=== PATIENT | male | born 1950 | race Caucasian/White ===

== ENCOUNTER 2018-06-07 15:09 | Emergency (ER) | payer MEDICARE, BC ==
[2018-06-07] MEDS ORDERED: fentaNYL* 50 MCG/ML 2 ML VIAL (100 MCG VIAL) ONE (15:36)
[2018-06-07] MEDS ORDERED: fentaNYL* 50 MCG/ML 2 ML VIAL (100 MCG VIAL) IV SLOW PU ONE (15:42)
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
[2018-06-07 15:52] LABS: ABS Basophils 0 10^3/ul (0-0.2); ABS Eosinophils 0.8 10^3/ul (0-0.6); ABS Monocytes 0.5 10^3/ul (0-0.8); ABS Neutrophils 3.7 10^3/ul (1.5-7.7); ABS Nucleated RBC 0 10^3/ul; Eosinophil % 10.9 % (0-6); Hematocrit 40 % (42-52); Hemoglobin 13.6 g/dl (14.0-18.0); Lymphocyte % 28.3 % (25-47); Mean Corpuscular HGB Conc 34 g/dl (31-36); Mean Corpuscular Hemoglobin 30 pg (27-31); Mean Corpuscular Volume 88 fL (80-94); Mean Platelet Volume 7.8 um3 (7.4-10.4); Nucleated Red Blood Cells % 0.1; Platelet Count 152 10^3/ul (150-450); Red Blood Count 4.52 10^6/ul (4.00-5.40); Red Cell Distribution Width 15 % (10.5-15)
[2018-06-07 16:00] LABS: INR 2.1 (0.77-1.02)
[2018-06-07 16:07] LABS: EGFR Non-African American 61.8 (>60)
[2018-06-07] MEDS ORDERED: Iodixanol* (CONTRAST) 320 MG/ML 100 ML SDV IV ONE (16:13)
--- NOTE | 2018-06-07 16:24 | RAD ---
INDICATION: Dyspnea COMPARISON: None. TECHNIQUE: Single AP portable view of the chest was obtained. FINDINGS: Image quality is compromised due to the relative inferiority of a portable chest x-ray. The heart and mediastinum exhibit normal size and contour. The lungs are grossly clear. There is no evidence of a large pleural effusion. Visualized bones are normal for the patient's age. IMPRESSION: No radiographic evidence for acute cardiopulmonary abnormality on this portable chest x-ray.
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
[2018-06-07] MEDS ORDERED: oxyCODONE/Acetamin 5/325 MG* TAB PO ONE ×2 (17:14→18:43)
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
[2018-06-07 19:17] VITALS: BP 152/81
== END 2018-06-07 19:30 | disposition home or self-care (01) ==
LOC: ED 15:09
DX: S22.31XA Fracture of one rib, right side, initial encounter for closed fracture (principal); S20.211A Contusion of right front wall of thorax, initial encounter; V86.55XA Driver of 3- or 4- wheeled all-terrain vehicle (ATV) injured in nontraffic accident, initial encounter; Y93.89 Activity, other specified; Y92.9 Unspecified place or not applicable; I44.4 Left anterior fascicular block; R06.02 Shortness of breath; M50.30 Other cervical disc degeneration, unspecified cervical region
CPT/HCPCS: 36415; 70450; 71045; 71260; 72125; 74177; 80053; 83735; 83880; 84484; 85025; 85610; 85730; 93005; 96374; 99284; A9270-GY; J3010; Q9967

== ENCOUNTER 2018-09-07 04:23 | Emergency (ER) | payer MEDICARE, BC ==
--- OUTSIDE RECORDS SUMMARY | 2018-09-07 04:33 | XMS REPORT | Continuity of Care Document ---
:1950 External Reference #:[id number] Author Name Shaun Gandhi M.D. Address [address] [place] [address] Care Team Providers Name Role Phone Mireya Hill MD Primary Care Physician Unavailable Payers Type Date Identification Numbers Payment Provider Subscriber Policy Number: [id number] Medicare - [facility] Shaun Moore Jacobo PayID: [id number] [facility] [place] [address] Policy Number: [id number] [facility] Shaun Centeno PayID: [id number] [address] [address] [place] [address] Advance Directives Description No Information Available Problems Date Description Provider Status Onset: Essential hypertension Active Onset: 05/02/2015 Nuclear senile cataract Shaun Gandhi M.D. Active Onset: 08/11/2018 Type 2 diabetes mellitus Shaun Gandhi M.D. 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 Vitamin D Active Tablets 1000Unit every Unknown 000 day Levothyroxine Active Tablets 25mcg Unknown Sodium 000 Metoprolol 00/00/0 Active Tablets ER 50mg Unknown Succinate ER 000 24HR Avapro Active Tablets 300mg 1 by Unknown 000 mouth every day Doxazosin Active Tablets 4mg Unknown Mesylate 000 Amlodipine Active Tablets 5mg Unknown Besylate 000 Paxil Active Tablets 40mg Unknown 000 Furosemide Active Tablets 80mg Unknown 000 Warfarin Sodium Active Tablets 10mg Unknown 000 Tikosyn Active Capsules 250mcg Unknown 000 Januvia Active Tablets 100mg [place], 000 Mireya Beckman M.D. Immunizations Description No Information Available Vital Signs Description No Information Available Results Description No Information Available Procedures Date Code Description Status 12/30/2017 12775 Est Patient Comprehensive Exam Completed 07/01/2017 48439 Est Patient Comprehensive Exam Completed 05/02/2015 57223 New Patient Comprehensive Exam Completed Encounters Description No Information Available Plan of Treatment 08/11/2018 - Shaun Gandhi M.D.H25.13 Age-related nuclear cataract, bilateralComments:Smoking can increase the risk of developing or worsening any eye related disease, as well as affect your overall health. If you are a smoker , we strongly recommend that you quit.If you are not a smoker, we strongly recommend that you do not start. You have been diagnosed with cataracts. If you are happy with your vision as it is now, then we will see you at your next scheduled appointment. If you feel like your vision is getting worse before your scheduled appointment, please call [facility] at .Follow up:6 Month Follow Up Diagnostic Refraction You can expect to have your eyes dilated at your next visit. If Dr. Gandhi orders any additional testing , it may require extra time. We recommend that you bring sunglasses, as dilation drops often make you light sensitive until they wear off. We always recommendyou bring someone to drive you home if you are uncomfortable driving with your eyes dilated. If you have any questions before your next visit, feel free to call our office at .E11.9 Type 2 diabetes mellitus without complicationsComments:You have diabetes. I do not detect any changes in both of your retinas from diabetes at this time. Proper control of your diabetes is important for the health of your eyes. Changes in your eyes from diabetes can happen without symptoms, so it is important that you have your eyes examined. Dr. Gandhi has sent a report to your primary care doctor, letting them know there is no damage from the Diabetes in your eyes.
--- NOTE | 2018-09-07 04:52 | ED ---
Upper Extremity Pain - HPI Summary HPI Summary: This patient is a 68 year old M presenting to [facility] with a chief complaint of left arm pain since 4 days ago. The patient reports that the pain resolved temporarily 3 days ago but returned 1 day ago a few hours after pulling the start cord on his motor power connector. Patient denies any known mechanism of injury. The patient rates the pain 8/10 in severity. Symptoms aggravated by movement. Symptoms alleviated by nothing. Patient reports swelling and bruising on his left arm. Patient notes that he took several Tylenol but it did not alleviate his symptoms. Hx of AFib. - History of Current Complaint Chief Complaint: EDExtremityUpper Stated Complaint: ARM PAIN Hx Obtained From: Patient Mechanism Of Injury: Unknown Onset/Duration: Started Days Ago, Still Present Timing: Constant Severity Initially: Moderate Severity Currently: Moderate Pain Location: Arm - left upper arm Aggravating Factor(s): Movement Alleviating Factor(s): Nothing Associated Signs & Symptoms: Positive: Swelling, Bruising - Allergies/Home Medications Allergies/Adverse Reactions: Allergies Allergy/AdvReac Type Severity Reaction Status Date / Time No Known Allergies Allergy Verified 09/07/18 04:39 PMH/Surg Hx/FS Hx/Imm Hx Endocrine/Hematology History: Reports: Hx Diabetes Cardiovascular History: Reports: Hx Atrial Fibrillation, Hx Hypertension History: Denies: Hx Renal Disease - Surgical History Surgery Procedure, Year, and Place: T & A. LEFT CEASAR Infectious Disease History: No Infectious Disease History: Denies: Traveled Outside the in Last 30 Days - Family History Known Family History: Positive: Hypertension - Social History Alcohol Use: None Hx Substance Use: No Substance Use Type: Reports: None Hx Tobacco Use: No Smoking Status (MU): Never Smoked Tobacco Review of Systems Negative: Fever Negative: Epistaxis Negative: Chest Pain Positive: Myalgia - upper left arm pain, Edema - swelling of upper left arm Positive: Bruising - on left upper arm All Other Systems Reviewed And Are Negative: No Physical Exam - Summary Physical Exam Summary: Appearance: Well-appearing, Well-nourished, lying in bed comfortable Skin: Warm, dry, no obvious rash Eyes: sclera anicteric, no conjunctival pallor ENT: mucous membranes moist Neck: deferred Respiratory: No signs of respiratory distress Cardiovascular: Appears well perfused, Pulse slow but regular Abdomen: deferred Musculoskeletal: Moving all 4 extremities without obvious discomfort. Left forearm over bicep musculature is swollen, feels somewhat firm with obvious ecchymosis over the area. Patient is able to flex bicep muscle and supinate forearm. Neurological: Awake and alert, mentation is normal, speech is fluent and appropriate Psychiatric: affect is normal, does not appear anxious or depressed Triage Information Reviewed: Yes Vital Signs On Initial Exam: Initial Vitals Temp Pulse Resp BP Pulse Ox 97.1 F 54 18 159/74 95 09/07/18 04:24 09/07/18 04:24 09/07/18 04:24 09/07/18 04:24 09/07/18 04:24 Vital Signs Reviewed: Yes Diagnostics - Vital Signs Vital Signs Temp Pulse Resp BP Pulse Ox 09/07/18 04:24 97.1 F 54 18 159/74 95 - Laboratory Lab Statement: Any lab studies that have been ordered have been reviewed, and results considered in the medical decision making process. Course/Dx - Course Course Of Treatment: This patient is a 68 year old M with hx AFib reporting left arm pain, swelling and bruising since 4 days ago. The patient reports that the pain resolved temporarily 3 days ago but returned 1 day ago a few hours after pulling the start cord on his motor power connector. Patient will be discharged with follow up from PCP. The patient is agreeable with this plan. Given the extent of the patient's hematoma with associated swelling, as well as the fact that he tells me he has been in sinus rhythm for many years now and there is no other reason for his anticoagulation, I have elected to give him a dose of vitamin K and have asked him to discontinue his Coumadin for the time being. His orthopedic surgeon and echo technician can decide when the Coumadin can be restarted. - Diagnoses Provider Diagnoses: Biceps muscle tear Discharge - Sign-Out/Discharge Documenting (check all that apply): Patient Departure - Discharge Plan Condition: Good Disposition: HOME Prescriptions: Oxycodone HCl/Acetaminophen [Percocet] 2 tab PO Q4HR PRN #15 tab MDD 6 tabs PRN Reason: Pain Patient Education Materials: Muscle Strain (ED) Referrals: Mireya Hill MD [Primary Care Provider] - Additional Instructions: I would like to stop your coumadin for a period of time to minimize the bleeding from the torn muscle. I expect this should be for at least a week. Followup with the orthopedic surgeon and your echo technician is important to monitor healing and make sure any potential complications are picked up and handled. - Billing Disposition and Condition Condition: GOOD Disposition: Home - Attestation Statements Document Initiated by Heidi: Yes Documenting Scribe: Lanette Krause Provider For Whom Heidi is Documenting (Include Credential): Cosme Sparks MD Scribe Attestation: Lanette Goodrich, scribed for Cosme Sparks MD on 09/11/18 at 0228. Scribe Documentation Reviewed: Yes Provider Attestation: The documentation as recorded by the Lanette quiroga accurately reflects the service I personally performed and the decisions made by Cosme mak MD Status of Scribe Document: Viewed
[2018-09-07] MEDS ORDERED: Phytonadione Oral Solution* 5 MG/25 ML UDC PO ONE (04:57)
[2018-09-07 05:14] VITALS: BP 128/76
== END 2018-09-07 05:11 | disposition home or self-care (01) ==
LOC: ED 04:23
DX: S46.212A Strain of muscle, fascia and tendon of other parts of biceps, left arm, initial encounter (principal); X50.9XXA Other and unspecified overexertion or strenuous movements or postures, initial encounter; Y92.9 Unspecified place or not applicable
CPT/HCPCS: 99282

== ENCOUNTER 2019-04-04 20:30 | Emergency (ER) | payer MEDICARE, BC ==
--- NOTE | 2019-04-04 23:09 | ED ---
Skin Complaint - HPI Summary HPI Summary: This patient is a 69 year old M presenting to ED with a chief complaint of soreness on inner R thigh since this morning. He thinks he has cellulitis. On 09/09, patient had soreness on the right thigh, chills, vomiting, and 100.1F fever. On 04/03/19 patient vomited a few times. This morning, he developed the rash. Patient is taking Coumadin for a-fib. The patient rates the pain 8/10 in severity. Symptoms aggravated by nothing. Symptoms alleviated by nothing. Patient denies pain in groin. - History of Current Complaint Chief Complaint: EDRashSkinAbscess Time Seen by Provider: 04/04/19 23:00 Stated Complaint: CELLULITIS PER PT Hx Obtained From: Patient Onset/Duration: Started Days Ago, Still Present Timing: Constant Onset Severity: Severe Current Severity: Severe Pain Intensity: 8 Pain Scale Used: 0-10 Numeric Skin Location: Other: - Inner R thigh Character: Pain - Sore Aggravating Symptom(s): Nothing Alleviating Symptom(s): Nothing Associated Signs & Symptoms: Vomiting, Fever - Allergy/Home Medications Allergies/Adverse Reactions: Allergies Allergy/AdvReac Type Severity Reaction Status Date / Time No Known Allergies Allergy Verified 04/05/19 00:02 PMH/Surg Hx/FS Hx/Imm Hx Endocrine/Hematology History: Reports: Hx Diabetes Cardiovascular History: Reports: Hx Atrial Fibrillation, Hx Hypertension Denies: Hx Pacemaker/ICD Respiratory History: Denies: Hx Asthma History: Denies: Hx Renal Disease Sensory History: Denies: Hx Hearing Aid Psychiatric History: Denies: Hx Panic Disorder - Surgical History Surgery Procedure, Year, and Place: T & A. LEFT HIP REPLACEMENT Infectious Disease History: No Infectious Disease History: Denies: Traveled Outside the [place] in Last 30 Days - Family History Known Family History: Positive: Hypertension - Social History Alcohol Use: None Hx Substance Use: No Substance Use Type: Reports: None Hx Tobacco Use: No Smoking Status (MU): Never Smoked Tobacco Review of Systems Positive: Fever - 100.1F, Chills Positive: Vomiting Musculoskeletal: Other - Soreness in R thigh Positive: Rash - Inner R thigh All Other Systems Reviewed And Are Negative: Yes Physical Exam - Summary Physical Exam Summary: VITAL SIGNS: Reviewed. GENERAL: Patient is a morbidly obese male who is lying comfortable in the stretcher. Patient is not in any acute respiratory distress. HEAD AND FACE: No signs of trauma. No ecchymosis, hematomas or skull depressions. No sinus tenderness. EYES: PERRLA, EOMI x 2, No injected conjunctiva, no nystagmus. EARS: Hearing grossly intact. Ear canals and tympanic membranes are within normal limits. MOUTH: Oropharynx within normal limits. NECK: Supple, trachea is midline, no adenopathy, no JVD, no carotid bruit, no c- spine tenderness, neck with full ROM CHEST: Symmetric, no tenderness at palpation LUNGS: Clear to auscultation bilaterally. No wheezing or crackles. CVS: Regular rate and rhythm, S1 and S2 present, no murmurs or gallops appreciated. ABDOMEN: Soft, non-tender. No signs of distention. No rebound no guarding, and no masses palpated. Bowel sounds are normal. EXTREMITIES: bilateral LE pitting edema NEURO: Alert and oriented x 3. No acute neurological deficits. Speech is normal and follows commands. SKIN: Right thigh has an area [id number] of redness, tenderness along the course of the great saphenous vein. Triage Information Reviewed: Yes Vital Signs On Initial Exam: Initial Vitals Temp Pulse Resp BP Pulse Ox 98.3 F 58 18 133/75 96 04/04/19 20:32 04/04/19 20:32 04/04/19 20:32 04/04/19 20:32 04/04/19 20:32 Vital Signs Reviewed: Yes Diagnostics - Vital Signs Vital Signs Temp Pulse Resp BP Pulse Ox 04/04/19 20:32 98.3 F 58 18 133/75 96 - Laboratory Result Diagrams: 04/04/19 23:37 04/04/19 23:37 Lab Statement: Any lab studies that have been ordered have been reviewed, and results considered in the medical decision making process. - Ultrasound DVT Ultrasound Interpretation Completed By: Radiologist Summary of Ultrasound Findings: No right extremity deep vein thrombosis. Dr. Torres has reviewed this radiology report. Course/Dx - Course Course Of Treatment: This patient is a 69 year old M presenting to ED with a chief complaint of soreness on inner R thigh since this morning. In the ED course, patient received Percocet. Blood work obtained. Venous doppler revealed no right extremity deep vein thrombosis. Patient will be discharged home with dx of cellulitis and phlebitis. Patient understands and agrees with this plan. - Diagnoses Provider Diagnoses: Cellulitis, Phlebitis Discharge - Sign-Out/Discharge Documenting (check all that apply): Patient Departure - Discharge Patient Received Moderate/Deep Sedation with Procedure: No - Discharge Plan Condition: Stable Disposition: HOME Prescriptions: DOXYcycline CAP(*) [DOXYcycline 100MG CAP(*)] 100 mg PO BID #14 cap Patient Education Materials: Cellulitis (ED), Phlebitis (ED) Referrals: Mireya Hill MD [Primary Care Provider] - 2 Days Additional Instructions: Follow-up with your primary care provider in 2-3 days. Apply warm compresses. RETURN TO THE ER FOR WORSENING OR CHANGING SYMPTOMS. - Billing Disposition and Condition Condition: STABLE Disposition: Home - Attestation Statements Document Initiated by Heidi: Yes Documenting Scribe: Dash Santos Provider For Whom Heidi is Documenting (Include Credential): Xander Torres MD Scribe Attestation: Dash Goodrich, scribed for Xander Torres MD on 04/05/19 at 1939. Scribe Documentation Reviewed: Yes Provider Attestation: The documentation as recorded by the Dash quiroga accurately reflects the service I personally performed and the decisions made by , Xander Torres MD Status of Scribe Document: Viewed
[2019-04-04] MEDS ORDERED: oxyCODONE/Acetamin 5/325 MG* TAB PO ONE (23:20)
[2019-04-04 23:49] LABS: Hematocrit 42 % (42-52); Hemoglobin 14.3 g/dL (14.0-18.0); Mean Corpuscular HGB Conc 34 g/dL (31-36); Mean Corpuscular Hemoglobin 30 pg (27-31); Mean Corpuscular Volume 89 fL (80-94); Mean Platelet Volume 7.4 fL (7.4-10.4); Platelet Count 129 10^3/uL (150-450); Red Blood Count 4.72 10^6 /uL (4.18-5.48); Red Cell Distribution Width 14 % (10-15); White Blood Count 8.2 10^3/uL (3.5-10.8)
[2019-04-05 00:01] LABS: Activated Partial Thrombo Time 51.1 seconds (26.0-38.0); INR 1.88 (0.82-1.09)
[2019-04-05 00:05] LABS: Albumin 3.8 g/dL (3.2-5.2); Albumin/Globulin Ratio 1.1 (1-3); BUN/Creatinine Ratio 21.5 (8-20); C Reactive Protein 125.38 mg/L (<8.01); Calcium 9.2 mg/dL (8.6-10.3); EGFR Non-African American 54.6 (>60); Globulin 3.5 g/dL (2-4); Potassium 3.6 mmol/L (3.5-5.0); Total Protein 7.3 g/dL (6.4-8.9)
[2019-04-05 01:12] LABS: ABS Basophils 0.1 10^3/ul (0-0.2); ABS Eosinophils 0.2 10^3/ul (0-0.6); ABS Lymphocytes 2.4 10^3/ul (1.0-4.8); ABS Neutrophils 4.5 10^3/ul (1.5-7.7); Eosinophil % 2.3 %; Lymphocyte % 29.6 %; Nucleated Red Blood Cells % 0.1
[2019-04-05] MEDS ORDERED: DOXYcycline CAP(*) 100 MG PO ONE (01:19)
[2019-04-05 01:29] VITALS: BP 127/83
== END 2019-04-05 01:28 | disposition home or self-care (01) ==
LOC: ED 20:30
DX: L03.115 Cellulitis of right lower limb (principal); I80.01 Phlebitis and thrombophlebitis of superficial vessels of right lower extremity; R11.10 Vomiting, unspecified; R50.9 Fever, unspecified; E11.9 Type 2 diabetes mellitus without complications; I10 Essential (primary) hypertension; I48.91 Unspecified atrial fibrillation; Z79.01 Long term (current) use of anticoagulants; Z96.642 Presence of left artificial hip joint
CPT/HCPCS: 36415; 80053; 83605; 85025; 85060; 85610; 85730; 86140; 87040; 99283; A9270-GY

== ENCOUNTER 2019-07-31 02:33 | Emergency (ER) | payer MEDICARE, BC ==
[2019-07-31 04:57] LABS: ABS Basophils 0.1 10^3/ul (0-0.2); ABS Eosinophils 0.9 10^3/ul (0-0.6); ABS Lymphocytes 2.8 10^3/ul (1.0-4.8); ABS Monocytes 0.7 10^3/ul (0-0.8); ABS Neutrophils 3.9 10^3/ul (1.5-7.7); Eosinophil % 10.5 %; Hematocrit 43 % (42-52); Hemoglobin 14.3 g/dL (14.0-18.0); Lymphocyte % 33.1 %; Mean Corpuscular HGB Conc 33 g/dL (31-36); Mean Corpuscular Hemoglobin 29 pg (27-31); Mean Corpuscular Volume 88 fL (80-94); Mean Platelet Volume 7.4 fL (7.4-10.4); Nucleated Red Blood Cells % 0.1; Platelet Count 169 10^3/uL (150-450); Red Blood Count 4.87 10^6 /uL (4.18-5.48); Red Cell Distribution Width 15 % (10-15); White Blood Count 8.5 10^3/uL (3.5-10.8)
--- NOTE | 2019-07-31 04:58 | ED ---
Lower Extremity - HPI Summary HPI Summary: 69 year old male presents to the ED with a chief complaint of right leg pain starting 3 weeks ago. 2 weeks ago he went to the ED for the pain; no DVT was detected and he was prescribed Keflex. Pain began to radiate up his thigh during the last several days. Patient denies recent trauma, chills, fever, chest pain, or shortness of breath. Patient has a history of cellulitis. - History of Current Complaint Chief Complaint: EDExtremityLower Stated Complaint: CELLULITIS PER PT Time Seen by Provider: 07/31/19 04:13 Hx Obtained From: Patient Onset of Pain: Days - Weeks Onset/Duration: Worse Since - Several Days ago. Severity Initially: Moderate Severity Currently: Moderate Pain Intensity: 4 Pain Scale Used: 0-10 Numeric Timing: Constant Location: Is Discrete @ - Right calf radiating to right thigh. Associated Signs And Symptoms: Positive: Swelling. Negative: Fever Able to Bear Weight: Yes - Allergies/Home Medications Allergies/Adverse Reactions: Allergies Allergy/AdvReac Type Severity Reaction Status Date / Time No Known Allergies Allergy Verified 07/31/19 02:39 PMH/Surg Hx/FS Hx/Imm Hx Endocrine/Hematology History: Reports: Hx Diabetes Cardiovascular History: Reports: Hx Atrial Fibrillation, Hx Hypertension Denies: Hx Pacemaker/ICD Respiratory History: Denies: Hx Asthma History: Denies: Hx Renal Disease Sensory History: Denies: Hx Hearing Aid Psychiatric History: Denies: Hx Panic Disorder - Surgical History Surgery Procedure, Year, and Place: T & A. LEFT HIP REPLACEMENT Infectious Disease History: No Infectious Disease History: Denies: Traveled Outside the [place] in Last 30 Days - Family History Known Family History: Positive: Hypertension - Social History Alcohol Use: None Hx Substance Use: No Substance Use Type: Reports: None Hx Tobacco Use: No Smoking Status (MU): Never Smoked Tobacco Review of Systems - ROS Summary Review of Systems Summary: Home Medications Medication Instructions Recorded Confirmed Type Dofetilide CAP* [Tikosyn CAP*] 250 mcg PO BID 05/15/17 07/31/19 History Doxazosin TAB* [Cardura TAB*] 4 mg PO BID 05/15/17 07/31/19 History Furosemide TAB* [Lasix TAB*] 80 mg PO DAILY 05/15/17 07/31/19 History Irbesartan [Avapro] 300 mg PO DAILY 05/15/17 07/31/19 History Levothyroxine TAB* [Synthroid TAB*] 37.5 mcg PO DAILY 05/15/17 07/31/19 History Metoprolol Tartrate TAB* 100 mg PO DAILY 05/15/17 07/31/19 History [Lopressor TAB*] PARoxetine HCL TAB* [Paxil TAB*] 40 mg PO DAILY 05/15/17 07/31/19 History Potassium Chlor TAB* [Klor Con ER 20 meq PO DAILY 05/15/17 07/31/19 History TAB*] Warfarin TAB(*) [Coumadin TAB(*)] 12 mg PO DAILY 05/15/17 07/31/19 History amLODIPine TAB* [Norvasc 5 mg TAB*] 5 mg PO DAILY 05/15/17 07/31/19 History Cholecalciferol TAB* [Vitamin D 4,000 units PO DAILY 05/20/17 07/31/19 History TAB*] DOXYcycline CAP(*) [DOXYcycline 100 mg PO BID #14 cap 04/05/19 07/31/19 Rx 100MG CAP(*)] Negative: Fever, Chills Negative: Chest Pain Negative: Shortness Of Breath Positive: Myalgia, Edema All Other Systems Reviewed And Are Negative: Yes Physical Exam - Summary Physical Exam Summary: General: Obese male. No acute distress. HEENT: Normocephalic, Atraumatic. Eyes: Conjuctiva normal, PERRL. Ears: TMs within normal limits. Nares: (-) discharge, (-) erythema. Oropharynx: Clear, mucous membranes moist, (-) exudates. Neck: Soft, FROM, (-) lymphadenopathy, (-) thyromegaly, (-) JVD. Cardiovascular: Normal sinus rhythm, (-) murmur. Lungs: Clear to auscultation bilaterally (-) wheezes, (-) rales, (-) rhonchi. Abdomen: Soft, non-tender, non-distended, (-) organomegaly, normal bowel sounds. Back: (-) CVA tenderness Extremities: Right posterior calf erythema and warmth, mild tenderness. Tenderness in distal posterior thigh. Normal pulses and capillary refill. Skin: Warm, dry, (-) rash. Neuro: Alert and oriented x3, no focal deficits. Psychiatric: Mood normal, affect normal. Triage Information Reviewed: Yes Vital Signs On Initial Exam: Initial Vitals Temp Pulse Resp BP Pulse Ox 98.0 F 54 16 159/83 97 07/31/19 02:35 07/31/19 02:35 07/31/19 02:35 07/31/19 02:35 07/31/19 02:35 Vital Signs Reviewed: Yes Procedures - Sedation Patient Received Moderate/Deep Sedation with Procedure: No Diagnostics - Vital Signs Vital Signs Temp Pulse Resp BP Pulse Ox 07/31/19 02:35 98.0 F 54 16 159/83 97 - Laboratory Result Diagrams: 07/31/19 04:48 07/31/19 04:48 Lab Statement: Any lab studies that have been ordered have been reviewed, and results considered in the medical decision making process. Lower Extremity Course/Dx - Course Course Of Treatment: 69-year-old male with swelling and pain of the right lower leg. He states it started when he was in [place] 2 weeks ago. Was seen in the emergency room. Had a negative DVT study. History was Keflex for cellulitis. He states he was feeling somewhat better until last night when the pain increased up the leg. Continues with redness and warmth to the posterior calf area. He has history of cellulitis. Awaiting duplex. Sinusitis and shift. - Diagnoses Provider Diagnoses: Cellulitis, Lower extremity pain Discharge ED - Sign-Out/Discharge Documenting (check all that apply): Sign-Out Patient Signing out patient TO: Jim Acevedo - Signing out patient from Dr. Cameron to Dr. Acevedo at end of shift at 0700, 07/31/19, pending Doppler on RLE. - Discharge Plan Referrals: Mireya Hill MD [Primary Care Provider] - - Attestation Statements Document Initiated by Scribe: Yes Documenting Scribe: Aaron Ann Provider For Whom Scribe is Documenting (Include Credential): Karishma Cameron MD. Scribe Attestation: Aaron Goodrich , scribed for Karishma Cameron MD. on 07/31/19 at 0705. Scribe Documentation Reviewed: Yes Provider Attestation: The documentation as recorded by the scribeAaron accurately reflects the service I personally performed and the decisions made by , Karishma Cameron MD. Status of Scribe Document: Viewed
[2019-07-31 05:15] LABS: Albumin 3.9 g/dL (3.2-5.2); Albumin/Globulin Ratio 1.1 (1-3); C Reactive Protein 5.81 mg/L (<8.01); Calcium 9.9 mg/dL (8.6-10.3); EGFR African American 72.4 (>60); EGFR Non-African American 59.9 (>60); Globulin 3.5 g/dL (2-4); Potassium 4.3 mmol/L (3.5-5.0); Total Bilirubin 0.7 mg/dL (0.2-1.0); Total Protein 7.4 g/dL (6.4-8.9)
[2019-07-31] MEDS ORDERED: Clindamycin CAP* 150 MG PO ONE (05:50)
--- NOTE | 2019-07-31 07:13 | ED ---
Progress - Progress Note Progress Note: This patient was signed out from Dr. Cameron at 0700 07/[address] Acevedo, pending disposition, awaiting Doppler X-Ray results on right lower extremity. Venous Doppler Study: 1. THERE IS A MASS VERSUS FLUID COLLECTION WITHIN THE CALF MEASURING UP TO 8.2 CM IN SIZE. THERE IS MASS EFFECT UPON THE POPLITEAL VEIN, WHICH IS PATENT WITHOUT EVIDENCE OF THROMBOSIS. 2. THERE IS A COMPLEX COLLECTION WITHIN THE POPLITEAL FOSSA MEASURING UP TO 14.1 CM. 3. THE GREATER SAPHENOUS VEIN AND THE PERONEAL VEINS ARE NOT VISUALIZED. 4. THERE IS NO DEEP VEIN THROMBOSIS WITHIN THE VISUALIZED PORTION OF THE RIGHT LOWER EXTREMITY VENOUS SYSTEM. given ultrasound findings, CT of the lower extremity ordered Lower Extremity CT: 1. THE POPLITEAL FOSSA FLUID COLLECTION NOTED ON PREVIOUS ULTRASOUND APPEARS TO CORRESPOND TO A HEMORRHAGIC HORTON'S CYST ON THE CURRENT CT EXAMINATION. 2. ADVANCED OSTEOARTHRITIS. 3. OSTEOPENIA. 4. JOINT EFFUSION. The patients condition is stable and will be discharged to home with Dx of Horton's Cyst, Cellulitis, sent home on clindamycin. Re-Evaluation - Re-Evaluation First Eval Re-Evaluation Time: 10:07 Comment: Pt discharged home Course/Dx - Diagnoses Provider Diagnoses: Bakers cyst, Cellulitis Discharge ED - Sign-Out/Discharge Documenting (check all that apply): Patient Departure - discharge - Discharge Plan Condition: Stable Disposition: HOME Prescriptions: Clindamycin Cap(NF) [Clindamycin Cap 300 mg Cap(NF)] 300 mg PO Q6H 7 Days #28 cap Patient Education Materials: Cellulitis (ED), Bakers Cyst (ED) Referrals: Mireya Hill MD [Primary Care Provider] - Additional Instructions: You were seen in the emergency department for leg pain or your ultrasound did not show any evidence of blood clot, your CT scan showed a Horton's cyst. If any studies were not completed at the time of discharge you will be called with the relevant results. Please take clindamycin for one week. Please follow up with your primary care doctor in next 2-3 days and return to emergency department for worsening pain, fevers, redness of area or concerning symptoms. It was a pleasure taking care of you today. - Billing Disposition and Condition Condition: STABLE Disposition: Home - Attestation Statements Document Initiated by Dillonibe: Yes Documenting Scribe: Estefania Schneider Provider For Whom Heidi is Documenting (Include Credential): Dr. Jim Acevedo MD Scribe Attestation: I, Estefania Schneider, scribed for Dr. Jim Acevedo MD on 07/31/19 at [facility]. Scribe Documentation Reviewed: Yes Provider Attestation: The documentation as recorded by the Estefania quiroga accurately reflects the service I personally performed and the decisions made by me, Dr. Jim Acevedo MD Status of Scribe Document: Viewed
[2019-07-31 10:29] VITALS: BP 111/71
== END 2019-07-31 10:25 | disposition home or self-care (01) ==
LOC: ED 02:33
DX: M71.21 Synovial cyst of popliteal space [Baker], right knee (principal); L03.115 Cellulitis of right lower limb; E11.9 Type 2 diabetes mellitus without complications; I48.91 Unspecified atrial fibrillation; I10 Essential (primary) hypertension; E03.9 Hypothyroidism, unspecified; Z96.642 Presence of left artificial hip joint; Z79.01 Long term (current) use of anticoagulants; Z79.890 Hormone replacement therapy; Z79.899 Other long term (current) drug therapy; M17.12 Unilateral primary osteoarthritis, left knee
CPT/HCPCS: 36415; 80053; 83605; 85025; 86140; 99282; A9270-GY